=== PATIENT | male | born 1965 | race Caucasian/White ===

== ENCOUNTER 2016-07-31 10:28 | Emergency (ER) | payer MEDICAID ==
[~2016-07-31] VITALS: Ht 167.6 cm; Wt 82.5 kg
[2016-07-31 10:32] VITALS: Ht 167.6 cm; Wt 82.5 kg
[2016-07-31] MEDS ORDERED: SOD CHLORIDE 0.9% 1,000 ML IV STA (10:48)
[2016-07-31] MEDS ORDERED: morphine 4 MG/ML VIAL IV STA (10:48)
[2016-07-31] MEDS ORDERED: ONDANSETRON 4 MG INJ IV STA (10:48)
[2016-07-31 11:07] LABS: ADD SCAN DIFF NO
[2016-07-31 11:09] LABS: BASOPHILS % 0.5 % (0.0-2.0); EOSINOPHILS # 0.1 10^3/ul (0.0-0.5); EOSINOPHILS % 1.6 % (0.0-7.0); HEMATOCRIT 48.5 % (42.0-52.0); HEMOGLOBIN 16.4 g/dl (14.0-18.0); LYMPHOCYTES # 2.9 10^3/ul (0.8-2.9); LYMPHOCYTES % 36.8 % (15.0-51.0); MEAN CORPUSCULAR HEMOGLOBIN 28.4 pg (29.0-33.0); MEAN CORPUSCULAR HGB CONC 33.8 g/dl (32.0-37.0); MEAN CORPUSCULAR VOLUME 84.1 fl (82.0-101.0); MEAN PLATELET VOLUME 9.8 fl (7.4-10.4); MONOCYTE # 0.8 10^3/ul (0.3-0.9); MONOCYTES % 9.8 % (0.0-11.0); NEUTROPHILS % 50.9 % (39.0-77.0); PLATELET COUNT 278 10^3/UL (140-415); RED BLOOD COUNT 5.77 10^6/ul (4.70-6.10); RED CELL DISTRIBUTION WIDTH 13.2 % (11.5-14.5); WHITE BLOOD COUNT 7.9 10^3/ul (4.8-10.8)
--- NOTE | 2016-07-31 11:13 | RADRPT ---
PROCEDURE: Chest x-ray CLINICAL INDICATION: Pain. TECHNIQUE: One-view frontal. COMPARISON: None available FINDINGS: The cardiac silhouette is normal. No infiltrates are noted. No hilar abnormalities are identified. No pneumothorax or pleural effusions are visualized. IMPRESSION: 1. No active cardiopulmonary changes. RPTAT: HGSG .Britton Duran MD, MD Date Time Electronically viewed and signed by .Britton Duran MD, on 07/31/2016 11:13 .G/
[2016-07-31 11:27] LABS: CHLORIDE 103 mmol/L (97-110); SODIUM 139 mmol/L (135-144)
[2016-07-31 11:30] LABS: ANION GAP 16 (8-16); BLOOD UREA NITROGEN 17 mg/dl (7-20); CALCIUM 8.8 mg/dl (8.4-10.2); CARBON DIOXIDE 24 mmol/L (21-31); CREATININE 0.77 mg/dl (0.61-1.24); GLUCOSE 84 mg/dl (70-220); POTASSIUM 3.7 mmol/L (3.5-5.1)
--- NOTE | 2016-07-31 11:45 | RADRPT ---
PROCEDURE: CT Brain without contrast. CLINICAL INDICATION: Patient experiencing Syncope. TECHNIQUE: A multiplanar CT of the brain was performed on a CT scanner utilizing axial imaging fro m the skull base through the vertex without IV contrast. The CTDIvol is 44.73 mGy and the DLP is 63 0.2 mGycm. One or more of the following dose reduction techniques were utilized: Automated exposur e control, adjustment of the mA and/or kV according to patient size, use of iterative reconstruction technique. COMPARISON: None FINDINGS: No evidence of intracranial hemorrhage or abnormal extra-axial fluid collection. The brain parenchyma is normal attenuation morphology with preservation of sepulveda white differentiatio n and age appropriate size of the ventricles and subarachnoid spaces. The basal cisterns, posterior fossa contents, brainstem, craniocervical junction, orbits, pituitary axis, paranasal sinuses, mastoid air cells, and calvarium are unremarkable. IMPRESSION: 1. No intracranial hemorrhage or acute intracranial abnormality. RPTAT:AAJJ Physician Chasidy Date Time Electronically viewed and signed by Physician Chasidy on 07/31/2016 11:44 THOR/
[2016-07-31 11:47] LABS: TROPONIN-I < 0.012 ng/ml (0.00-0.12)
[2016-07-31] MEDS ORDERED: KETOROLAC 30 MG INJ IV STA (12:03)
[2016-07-31] MEDS ORDERED: TRAM50TA2 PO (12:07)
--- NOTE | 2016-07-31 12:07 | ERD ---
ER Documentation Chief Complaint Date/Time DATE: 07/31/16 TIME: 12:04 Chief Complaint sob, dizzy and feel in bathroom hit rib on toilet yesterday HPI This is a 51-year-old male who said he got dizzy yesterday while showering and fell and hit his ribs on the left side when he fell. He has not had any dizziness since then he denies any focal neurological complaints. He said he felt lightheaded for a split second. He did not pass out. No head trauma. Does complain of some left rib cage pain. Mild to moderate pain. ROS All systems reviewed and are negative except as per history of present illness. Medications Home Meds No Active Prescriptions or Reported Meds Allergies Allergies: Coded Allergies: No Known Allergy (Unverified , 07/31/16) PMhx/Soc Medical and Surgical Hx: pt denies Medical Hx, pt denies Surgical Hx Hx Psychiatric Problems: No Hx Miscellaneous Medical Probl: No Hx Alcohol Use: No Hx Substance Use: No Smoking Status: Never smoker Physical Exam Vitals Vital Signs Date Time Temp Pulse Resp B/P Pulse Ox O2 Delivery O2 Flow Rate FiO2 07/31/16 11:19 76 23 111/84 96 Room Air 07/31/16 10:32 99.1 90 20 142/83 97 Physical Exam Const: [] Head: Atraumatic Eyes: Normal Conjunctiva ENT: Normal External Ears, Nose and Mouth. Neck: Full range of motion..~ No meningismus. Resp: Clear to auscultation bilaterally Cardio: Regular rate and rhythm, no murmurs Abd: Soft, non tender, non distended. Normal bowel sounds Skin: No petechiae or rashes Back: No midline or flank tenderness Ext: No cyanosis, or edema Neur: Awake and alert Psych: Normal Mood and Affect Result Diagram: 07/31/16 1055 07/31/16 1055 Results 24 hrs Laboratory Tests Test 07/31/16 10:55 White Blood Count 7.910^3/ul Red Blood Count 5.7710^6/ul Hemoglobin 16.4g/dl Hematocrit 48.5% Mean Corpuscular Volume 84.1fl Mean Corpuscular Hemoglobin 28.4pg Mean Corpuscular Hemoglobin Concent 33.8g/dl Red Cell Distribution Width 13.2% Platelet Count 10885^3/UL Mean Platelet Volume 9.8fl Neutrophils % 50.9% Lymphocytes % 36.8% Monocytes % 9.8% Eosinophils % 1.6% Basophils % 0.5% Nucleated Red Blood Cells % 0.0/100WBC Neutrophils # 4.010^3/ul Lymphocytes # 2.910^3/ul Monocytes # 0.810^3/ul Eosinophils # 0.110^3/ul Basophils # 0.010^3/ul Nucleated Red Blood Cells # 0.010^3/ul Sodium Level 139mmol/L Potassium Level 3.7mmol/L Chloride Level 103mmol/L Carbon Dioxide Level 24mmol/L Anion Gap 16 Blood Urea Nitrogen 17mg/dl Creatinine 0.77mg/dl Glucose Level 84mg/dl Calcium Level 8.8mg/dl Troponin I < 0.012ng/ml Current Medications Medications (Trade) Dose Ordered Sig/Ksenia Route PRN Reason Start Time Stop Time Status Last Admin Dose Admin Sodium Chloride (NS) 1,000 ml @ 1,000 mls/hr Q1H STAT IV 07/31/16 10:48 07/31/16 11:47 DC 07/31/16 11:25 Morphine Sulfate (morphine) 4 mg ONCE STAT IV 07/31/16 10:48 07/31/16 10:49 DC 07/31/16 11:25 Ondansetron HCl (Zofran Inj) 4 mg ONCE STAT IV 07/31/16 10:48 07/31/16 10:49 DC 07/31/16 11:25 Procedures/MDM EKG: Rate/Rhythm: [Normal Sinus Rhythm] QRS, ST, T-waves: [No changes consistent w/ acute ischemia] Impression: [No evidence of ischemia or arrhythmia] Chest X-ray 1V Interpreted by me: Soft Tissue: No acute abnormalities Bones: No acute abnormalities Mediastinum/Cardiac Silhouette/Lungs: [No acute abnormalities] Medical decision-makin-year-old male with a rib contusion. He likely had a presyncopal event and had a vasovagal event. He has no chest pain or palpitations. Post or during. At this point is clinically stable for outpatient management. He has non-ataxic gait. Workup is negative here in the emergency department. He will be discharged home with tramadol for pain. Follow-up with PCP. No other current complaints. Departure Diagnosis: Primary Impression: Dizziness Additional Impression: Rib contusion Encounter type: initial encounter Laterality: left Qualified Code: S20.212A - Rib contusion, left, initial encounter Condition: Stable JUNIOR VO July 31, 2016 12:07
[2016-07-31 12:44] VITALS: BP 111/77; PULSE 57; RESP 18
== END 2016-07-31 13:08 | disposition home or self-care (01) ==
LOC: E/R 10:28
DX: R42 Dizziness and giddiness (principal); R40.2362 Coma scale, best motor response, obeys commands, at arrival to emergency department; S20.212A Contusion of left front wall of thorax, initial encounter; R40.2142 Coma scale, eyes open, spontaneous, at arrival to emergency department; W18.09XA Striking against other object with subsequent fall, initial encounter; Y92.89 Other specified places as the place of occurrence of the external cause
CPT/HCPCS: 36415; 70450; 71010; 80048; 84484; 85025; 93005; 96374; 96375; J1885; J2270; J2405; J7030; Z7502; Z7610

== ENCOUNTER 2018-11-02 15:45 | Emergency (ER) | payer MEDICAID ==
[~2018-11-02] VITALS: Ht 167.6 cm; Wt 87.9 kg
[~2018-11-02 15:45] MED LIST: CETI10CA PO; FAMO-96 PO; LOPE2CAP PO; NAPR-985 PO; ONDA4TAB8 PO; PRED20TA PO; TRAM50TA2 PO; TRIA15CR55 TOP
[2018-11-02 15:53] VITALS: Ht 167.6 cm; Wt 87.9 kg
[2018-11-02] MEDS ORDERED: BELLADONNA/PHENOBARBITAL TAB PO STA (16:19)
[2018-11-02] MEDS ORDERED: LIDOCAINE/MYLANTA 40 ML BTL PO STA (16:19)
[2018-11-02] MEDS ORDERED: KETOROLAC 15 MG INJ IV STA (16:19)
[2018-11-02] MEDS ORDERED: SOD CHLORIDE 0.9% 1,000 ML IV STA (16:19)
[2018-11-02] MEDS ORDERED: ONDANSETRON 4 MG INJ IV STA (16:19)
[2018-11-02 18:05] VITALS: BP 115/80; PULSE 67; RESP 14
== END 2018-11-02 18:06 | disposition home or self-care (01) ==
LOC: E/R 15:45
DX: R10.13 Epigastric pain (principal); F17.210 Nicotine dependence, cigarettes, uncomplicated; R11.2 Nausea with vomiting, unspecified
CPT/HCPCS: 36415; 80053; 81003; 83690; 84484; 85025; 93005; 96374; 96375; J1885; J2405; J7030; Z7502; Z7610